=== PATIENT | female | born 1980 | race Caucasian/White ===

== ENCOUNTER 2022-10-23 07:25 | Day surgery (SDC) | payer BC, SELFPAY ==
--- NOTE | 2022-10-13 16:47 | PCM.HP.BLA ---
History and Physical Date of Admission: 10/23/22 HPI: The patient is a 41 year old female presenting for pre-operative visit. She is scheduled for LAVH with bilateral salpingectomy, for menorrhagia, adenomyosis and fe def. anemia from chronic blood loss on 10/23/2022. Procedure discussed along with risks, benefits and complications. Other alternatives discussed for management. Consent form signed? Yes. ? ? PAST MEDICAL HISTORY PAST MEDICAL HISTORY Diagnosis Date ? ADHD (attention deficit hyperactivity disorder) ? ? Bronchitis, chronic (HCC) ? ? COPD (chronic obstructive pulmonary disease) (HCC) ? ? Depression ? ? Generalized anxiety disorder ? ? Menorrhagia ? ? Mixed hyperlipidemia ? ? Multiple lung nodules on CT ? ? 05/22/21 ? MVP (mitral valve prolapse) ? ? NEGATIVE MEDICAL HISTORY ? ? ? PAST SURGICAL HISTORY PAST SURGICAL HISTORY Procedure Laterality Date ? DELIVERY ONLY ? ? ? 2005, 2019 ? EGD W/O BRSH SPEC VARICIES INJ ? ? ? HEMORRHOIDECTOMY ? ? ? LIG/TRNSXJ FLP TUBE ABDL/VAG APPR UNI/BI ? 2005 ? PAST SURGICAL HISTORY OF ? ? ? appendectomy ? PAST SURGICAL HISTORY OF ? ? ? tubal reversal. ? ? ? CURRENT MEDICATIONS Current Outpatient Medications Medication Sig Dispense Refill ? norethindrone (AYGESTIN) 5 mg tablet Take 1 tablet by mouth 3 times daily until bleeding stops then take 1 tablet by twice daily for 3 days then daily until gone. 45 tablet 0 ? NaCl 0.9% solp 250 mL with iron sucrose 100 mg iron/5 mL soln Inject intravenously one time a week. ? ? ? FOLIC ACID ORAL Take 1 mg by mouth. ? ? ? cyanocobalamin, vitamin B-12, (B-12 KIT INJECTION) by INJECTION(UNSPECIFIED PARENTERAL ROUTES) route. Approx every 2 months ? ? ? albuterol HFA (PROVENTIL HFA, VENTOLIN HFA) 90 mcg/actuation inhaler Inhale 2 Puffs as instructed every 4 hours as needed. ? ? ? amphetamine-dextroamphetamine XR (ADDERALL XR) 30 mg 24 hr capsule Take 1 capsule by mouth. ? ? ? lyfimeojgg-veqjkcvr-ronlsqutcj (BREZTRI AEROSPHERE) 160-9-4.8 mcg/actuation HFA aerosol inhaler Inhale 2 Puffs as instructed twice daily. ? ? ? No current facility-administered medications for this visit. ? ? ALLERGIES: Patient has no known allergies. ? PERSONAL HISTORY: SOCIAL HISTORY Social History ? Tobacco Use ? Smoking status: Every Day ? ? Packs/day: 1.00 ? ? Years: 25.00 ? ? Pack years: 25.00 ? ? Types: Cigarettes ? Smokeless tobacco: Never Vaping Use ? Vaping Use: Never used Substance Use Topics ? Alcohol use: Yes ? ? Comment: Occasionally ? Drug use: No ? FAMILY HISTORY: FAMILY HISTORY FAMILY HISTORY Problem Relation Age of Onset ? Hypertension Mother ? ? Emphysema Mother ? ? Hypertension Father ? ? Breast Cancer Maternal Grandmother ? ? Heart Maternal Grandmother ? ? ? REVIEW OF SYMPTOMS: GENERAL: denies fevers or chills ENDOCRINOLOGY: has not been on steroids Cardiology : denies palpitations or chest pain Respiratory: denies SOB or cough Hematology: denies history of prolonged bleeding or easy bruising or VTE Allergy: Denies history of personal or family history of allergy to anesthesia ? PHYSICAL EXAMINATION: ? VITALS: Blood pressure 106/72, pulse 84, resp. rate 16, height 5' 4.75 (1.645 m), weight 127 lb (57.6 kg), last menstrual period 09/06/2022, SpO2 100 %. ? GENERAL: The patient is well nourished, well hydrated in no acute distress. , The patient is oriented to time, place, and person. NECK: Supple. No lynphadenopathy, normal thyroid, no thyromegaly. LUNGS: Clear to auscultation bilaterally. no wheezes, rhonchi or rales HEART: Regular rate and rhythm, Normal heart sounds, and No murmurs or gallops ? IMPRESSION: menorrhagia, adenomyosis, fe def. anemia ? PLAN: The risks/benefits/alternatives and personal involved for the planned LAVH, bilateral salpingectomy were reviewed with the patient. Her questions were answered to her satisfaction and she desires to proceed. Consent was signed. I reviewed with her postop instructions and expectations. ? ? ? I have reviewed and updated past medical and surgical history, medications and allergies Arlene Haile M.D. ? pelvic US on 08/21/22 RESULT: Uterus size: 6.8 x 4.3 x 5 cm ?? ? -Orientation: Retroverted ?? ? -Myometrium: Normal sonographic appearance. ?? ? -Endometrial echo complex: 0.9 cm . ?The uterus appears bicornuate and/or septate. ?Several echogenic foci. 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 ? -Cervix: Incidental nabothian cysts Right ovary: 2.7 x 1.1 x 2.3 cm ?Normal sonographic appearance. Left ovary: 3.6 x 1.3 x 2.1 cm ?Normal sonographic appearance. Pelvis free fluid: None. Prominent veins in the adnexal regions bilaterally ? ? Pap and HRHPV 09/16/2022 completed EMB 08/2022- secretory endometrium Assessment & Plan Assessment/Plan (1) Menorrhagia: (2) Pelvic congestion: (3) Adenomyosis:
--- NOTE | 2022-10-17 08:03 | EKG12_ITS ---
Test Reason : PREOP Blood Pressure : / mmHG Vent. Rate : 076 BPM Atrial Rate : 076 BPM P-R Int : 114 ms QRS Dur : 066 ms QT Int : 346 ms P-R-T Axes : 067 055 050 degrees QTc Int : 389 ms Normal sinus rhythm Normal ECG Confirmed by KRISTI FLORES, ERIC ([id number]), editor at large JUAN MANUEL MCDANIELS ([id number]) on 10/20/2022 2:31:43 PM Referred By: Arlene Haile Confirmed By:NACHO BERRY MD
[2022-10-17 08:57] LABS: Hematocrit 42.3 % (37-47); Hemoglobin 13.9 g/dL (12.0-15.0); Mean Corp Hgb Conc 32.9 g/dL (32-36); Mean Corpuscular Hgb 28.8 pg (27.0-32.0); Mean Corpuscular Volume 87.8 fL (81-99); Mean Platelet Vol. 11.2 fl (6.2-12.0); Platelet Count 238 K/mm3 (150-450); RBC Distribution Width CV 16.6 % (11.6-14.6); RBC Distribution Width SD 53.9 fl (35.1-43.9); Red Blood Count 4.82 M/mm3 (4.2-5.4); White Blood Count 6.8 K/mm3 (4.4-11.0)
[2022-10-17 09:19] LABS: Anion Gap 7 (5-15); BUN 11 mg/dL (7-18); BUN/Creat Ratio 17.4 RATIO (10-20); Calcium,Total 9.1 mg/dL (8.5-10.1); Chloride 106 mmol/L (98-107); Creatinine, Serum 0.63 mg/dL (0.55-1.02); EST Glomerular Filtration Rate 110 mL/min (>60); Est Glom Filt Rate - Afr Amer 133 mL/min (>60); Glucose 108 mg/dL (74-106); Magnesium 2.1 mg/dL (1.6-2.6); Potassium 4.3 mmol/L (3.5-5.1); Sodium Level 137 mmol/L (136-145)
[2022-10-23 08:03] LABS: Internal QC Validated? YES +Cl - CLEAR BKGD
[2022-10-23 08:06] LABS: Pregnancy, Urine Negative Negative
[2022-10-23 08:17] VITALS: BP 102/63; PULSE 82; RESP 16; TEMP 37.1; O2SAT 100; BMI 21.4
[2022-10-23] MEDS: Lactated Ringers 1,000 ML 40 ML IV (08:22)
[2022-10-23] MEDS: Magnesium 1 GM over 15 mins IV (08:22)
[2022-10-23] MEDS: Celecoxib 200 MG Capsule 400 MG PO (08:23)
[2022-10-23] MEDS: Gabapentin 600 MG Tablet PO (08:23)
[2022-10-23] MEDS: Scopolamine 1mg/72hr Patch 1 PATCH TD (08:23)
[2022-10-23] MEDS: Acetaminophen 500 MG Tablet 1000 MG PO (08:23)
[2022-10-23] MEDS: Phenazopyridine 95 MG Tablet 190 MG PO (08:23)
[2022-10-23] MEDS: Enoxaparin 40 MG/0.4 ML Syringe SC (08:24)
[2022-10-23 09:25] LABS: Bedside Glucose 99 mg/dL (74-106)
[2022-10-23] MEDS: Cefazolin 2 GM in 0.9% Normal Saline 100 ML IV (09:55)
--- NOTE | 2022-10-23 09:55 | HYST_PTH ---
PATIENT: EUSEBIA FLORES LOC: [facility] U#:[id number] AGE/SX: 41/F ROOM: RE10/23/[address]: Dr. Arlene Haile MD : 1980 BED: DIS: 10/23/2022 SPEC #: [id number] RECD: 10/23/22 14:17 STATUS: EVELIA BRIJESH #: [id number] ORTIZ: 10/23/22 09:[address]: Arlene Haile DEPT: SURGICAL PATHOLOGY RECD BY: Yuly Pardo Tissues: Uterus, NOS Procedures: Surgery Specimen Level V HEADER OPERATION: ERAS, hysterectomy, LAVH, salpingectomy PRE-OP DIAGNOSIS: Menorrhagia, pelvic congestion, adenomyosis TISSUE SUBMITTED: Uterus and bilateral fallopian tubes MICROSCOPIC DIAGNOSIS Uterus, hysterectomy: Cervix ? mild chronic inflammation. Endometrium ? focal superficial adenomyosis. Myometrium ? leiomyoma. Right and left fallopian tubes ? complete cross-sections of two fallopian tubes. Benign paratubal cyst. AM:sidra 10/27/2022 MICROSCOPIC DESCRIPTION Slides are reviewed. GROSS DESCRIPTION Received in fixative is one container labeled with the patient's name and designated uterus and bilateral fallopian tubes. The specimen consists of a hysterectomy specimen consisting of uterus with cervix and detached bilateral fallopian tubes. The uterus with cervix weighs 84 gm and measures 8.0 x 6.0 x 4.5 cm. The serosal surface is dailey, glistening. The ectocervical mucosa is unremarkable. The external os is oval in contour. The endocervical canal measures 3.0 cm in length and the endocervical mucosa is dailey, glistening and unremarkable. The triangular endometrial cavity measures 3.5 cm in length and 2.0 cm in width. The endometrium is dailey, glistening without any mass lesion and measures 0.3 cm in thickness. Sections of the uterine wall do not reveal any mass lesion. An ill-defined, whitish area is noted measuring 0.3 cm in greatest dimension. The uterine wall measures up to 2.0 cm in thickness. The detached bilateral fallopian tubes are not identified as right or left and measures 3.5 cm in length and 0.5 cm in diameter and 4.5 cm in length and 0.5 cm in diameter. The fimbrial end is identified. Sections reveal unremarkable cut surfaces. Fryline Attendant sections are submitted in 9 cassettes as follows: 1 - anterior cervix, 2 - posterior cervix, 3 & 4 - anterior uterine wall, 5 & 6 - posterior uterine wall, 7 - ill-defined nodular area, 8 - one fallopian tube, 9 - second fallopian tube. / WEI:sidra 10/24/2022 TC:5 CPT: 53342
--- NOTE | 2022-10-23 10:06 | DCINST_ITS ---
Discharge Instructions Diet Discharge Diet: Light diet - advance as tolerated Activity Discharge Activity: May Drive (in 5-7 days if not taking pain medication) and May Shower (10/24/12) May resume sexual activity in: 6-8 weeks Lifting Restrictions: 15 lbs x 6 weeks Dressing / Incision Call your doctor if your incision/area has: Sudden Increased Bleeding, Increased Pain/ Swelling, Foul Smelling Discharge and Swelling at the incision site Call your doctor if you observe: Fever of 101 or Higher Cleanse incision/area with: Soap & Water (Your incisions have skin glue, it can get wet. Leave it on for 10 days or until it falls off) Follow Up Care Please Follow Up With: Arlene Haile MD When: 1 week and 6 weeks or as needed. Call [phone] or send a Reesio message with any questions or concerns. Test Results: Test results from this visit will be discussed in further detail at your follow- up appointment, if applicable. Discharge Plan Admission Primary Reason for Your Visit: Hysterectomy Attending Provider: Arlene Haile Primary Care Provider: BENJY OVALLE Discharge Orders/Prescriptions Prescriptions: New ibuprofen [ibuprofen] 600 MG tablet 600 mg PO Q6H PRN (Reason: Pain) 20 Days Qty: 60 1RF oxycodone 5 MG tablet 5 mg PO Q6H PRN PRN (Reason: severe pain) 7 Days Qty: 15 0RF Continued albuterol sulfate 90 mcg/actuation HFA aerosol inhaler 2 inh INHALATION Q4H PRN PRN (Reason: Wheezing) Label Comments: INHALE 2 PUFFS EVERY 4 HOURS NEEDED FOR COUGH, SHORTNESS OF BREATH, FOR WHEEZING, or respiratory distress dextroamphetamine-amphetamine [Adderall XR] 15 mg Capsule,Extended Release 24hr 15 mg PO DAILY Referrals / Follow Up: BENJY OVALLE [Other] Disposition Disposition (needs filled in before D/C Order can be placed): Home, Self Care
[2022-10-23] MEDS: dexAMETHasone 4 MG/ML Vial 8 MG IV (10:13)
--- NOTE | 2022-10-23 11:05 | OP.PCM_ITS ---
Problems Associated Problem List Diagnoses (1) Menorrhagia: (2) Pelvic congestion: (3) Adenomyosis: Report of Operation Date of Procedure: 10/23/22 Pre-Operative Diagnosis: menorrhagia, adenomyosis, pelvic congestion Post-Operative Diagnosis: same Surgery/Procedure Performed:: LAVH with bilateral salpingectomy Description of Surgical Findings:: normal boggy uterus, tubes and ovaries Surgeon: Arlene Haile director of capital giving: Kortney Domingo director of capital giving: paula Hui MS3 Type of Anesthesia: General Anesthesiologist: Roseann Baldwin Special Medications: none Specimen's removed: uterus, cervix, bilateral fallopian tubes Drains: none Estimated Blood Loss (mL): 40 Fluids Replaced: 1100 Description of Procedure: The patient was taken to the operating room where she was prepped and draped in the dorsal lithotomy position. Her arms were tucked to the side and padded and her legs were placed in the yellowfin stirrups. Care was taken to ensure that she was placed in a neurologically safe and neutral position. A weighted speculum was placed in the vagina and the anterior lip of the cervix was grasped with a single-tooth tenaculum. The uterus sounded to 7 centimeters. The ZUMI uterine manipulator was placed and secured. The Espinal catheter was placed to straight drain. Attention was turned to the abdominal portion of the case. Before skin incisions were made they were infiltrated with 0.5% Marcaine solution for local anesthetic. A 5 mm intraumbilical incision was made and while tenting the anterior abdominal wall up with towel clamps a 5 mm blade less trocar and sleeve were advanced directly into the peritoneal cavity. Peritoneal placement was confirmed with the laparoscope the pneumoperitoneum was created, and the underlying abdominal contents were intact. The patient was placed in Trendelenburg and the above findings were noted. Right and left lateral 5 mm trochars were placed under direct visualization without difficulty. The antimesenteric portion of the tube was clamped sealed and transected serially on both sides with the LigaSure device. The round ligaments were clamped sealed and transected and a window was made in the peritoneum. The utero-ovarian ligaments were then clamped, sealed and transected with the LigaSure device and the pedicles were hemostatic The bladder flap was dissected down with the LigaSure device and blunt dissection and the uterine arteries were then skeletonized. The uterine arteries were clamped, sealed and transected on both sides with the LigaSure device. At this point the pedicles were all examined and found to be hemostatic. Attention was turned to the vaginal portion of the case. 1% lidocaine with dilute epinephrine solution was used to infiltrate the anterior vaginal epithelium over the cervix. An incision was made from 3 to 9:00 across the anterior vaginal epithelium and the vaginal epithelium was dissected back with blunt sharp dissection. The anterior colpotomy incision was made. The vaginal epithelium on each side of the cervix at 3 and 9:00 was clamped, transected and suture ligated. The next pedicle contained the anterior peritoneum and part of the cardinal ligament. The pedicle was was clamped with a Derrick clamp, transected and suture-ligated. Hemostasis was noted. The uterine fundus was brought through the anterior colpotomy incision. The uterosacral ligaments and vaginal cuff were secured with Derrick clamps. The pedicles were transected. The uterus and cervix were then amputated and removed. The pedicles were secured with an 0 Vicryl suture. At this point, the pedicles were all examined and hemostasis was assured. A uynfbx-uk-znypd was needed in the midline and the vaginal cuff between the uterosacrals to tack the peritoneum down to the posterior vaginal wall. The vaginal cuff was then closed in a horizontal fashion with interrupted 0 Vicryl xrhiid-lc-erexz sutures. Care was taken to secure the vagina to the uterosacral ligaments. A sponge stick was placed in the vagina to help place traction against the vaginal cuff. The laparoscope was reinserted into the abdomen and the pneumoperitoneum was re- created. The pedicles were reexamined and found to be hemostatic. The vaginal cuff was hemostatic. The right and left lateral ports were taken out and the sites were hemostatic. The pneumoperitoneum was released and even under low pressure there was no bleeding of any of the pedicles are vaginal cuff. The umbilical port was removed. The umbilical skin incisions were closed with Monocryl suture and skin glue by Dr. Alexandre. The vaginal instruments were removed by me and a vaginal sweep was completed by me. The surgery was performed by me with assistance other than the portions dictated as above. There were no qualified residents available for this procedure. All sponge lap and needle counts were correct and the patient was transferred to the recovery room in stable condition. Grafts/Implants Used: none Procedure Start Time: 10:16 Procedure Stop Time: 11:13 Complications none Admit VTE Documentation VTE Present on Admission: No VTE Mechan Device Prophylaxis: SCD's VTE Pharm Prophylaxis ordered?: No Reason prophylaxis not ordered:: Procedure Not Indicated
[2022-10-23] MEDS: Bupivacaine Mpf 0.5% 30 ML VIAL (11:12)
[2022-10-23] MEDS: Lidocaine 1% /Epi 1:100 (20ml) 20 ML Vial (11:12)
[2022-10-23] MEDS: Ondansetron 4 MG/2 ML Vial IV (11:12)
[2022-10-23 11:30] VITALS: BP 102/63; BP 116/68; PULSE 76; RESP 16; TEMP 36.8; O2SAT 100
[2022-10-23 11:45] VITALS: BP 102/63; BP 110/78; PULSE 71; RESP 15; O2SAT 100
[2022-10-23 12:00] VITALS: BP 102/63; BP 112/79; PULSE 74; RESP 16; O2SAT 100
[2022-10-23 12:26] VITALS: BP 102/63; BP 113/76; PULSE 65; RESP 16; TEMP 36.4; O2SAT 100
[2022-10-23] MEDS: oxyCODONE 5 MG Tablet PO (14:19)
[2022-10-23 14:27] LABS: Hematocrit 38.7 % (37-47); Hemoglobin 12.5 g/dL (12.0-15.0); Mean Corp Hgb Conc 32.3 g/dL (32-36); Mean Corpuscular Hgb 28.9 pg (27.0-32.0); Mean Corpuscular Volume 89.4 fL (81-99); Mean Platelet Vol. 10.5 fl (6.2-12.0); Platelet Count 218 K/mm3 (150-450); RBC Distribution Width SD 53.2 fl (35.1-43.9); Red Blood Count 4.33 M/mm3 (4.2-5.4); White Blood Count 12.9 K/mm3 (4.4-11.0)
[2022-10-23 15:07] VITALS: BP 102/63; BP 110/65; PULSE 95; RESP 16; TEMP 37.4; O2SAT 98
--- NOTE | 2022-10-23 15:35 | SUR.PHASEII ---
1320: IN TO CHECK ON PT, PULLED BLANKETS BACK AND GOWN WAS SATURATED WITH BLOOD. BLOOD COMING FROM LEFT LOWER INCISION. PRESSURE HELD. DR HEMAL ALMAZAN. HEMAL AT BEDSIDE RE-DRESSING AND SUTURING PT. PT NOW HAS OPSITE OVER WOUND. SHADOWING ON OPSITE, NO MORE DRAINAGE NOTED AT TIME OF DISCHARGE. DR RECIO OK WITH PT GOING HOME. NO FURTHER ORDERS OR INSTRUCTIONS.
--- NOTE | 2022-10-23 17:55 | PCM.PN.BLA ---
Progress Note I was called to the recovery room at approximately 1:30 PM because the patient's left lower quadrant incision was bleeding. The skin glue was removed and there was active bleeding from the site. There is just a small constant trickle. I attempted to place a deeper suture into the incision but the bleeding continued around it. I then removed the subcu reticular suture and the suture I had placed. I attempted again to place a horizontal mattress suture but it still continued to bleed. This was then removed. Then I had a portable cautery and was able to cauterize the incision. I had injected approximately 8 cc of 1% Xylocaine without epinephrine locally and cleansed the area with Betadine. At this point the incision was watched for several minutes and was hemostatic. The skin edges were then reapproximated with Steri-Strips and an OpSite was placed over it. The patient is to follow-up in 1 week or as needed. Call if any increased bleeding or concerns. Patient is comfortable with this plan.
== END 2022-10-23 15:32 | disposition home or self-care (01) ==
LOC: SDC 07:27 → AC 07:27
PROVIDERS: Anesthesiology; Referring Provider Obstetrics & Gynecology; Visit Provider Obstetrics & Gynecology
PROC: 0UT9FZZ Resection of Uterus, Via Natural or Artificial Opening With Percutaneous Endoscopic Assistance (ICD-10-PCS; CPT 58552; principal; 2022-10-23 09:35)
DX: D25.9 Leiomyoma of uterus, unspecified (principal); J44.9 Chronic obstructive pulmonary disease, unspecified; N72 Inflammatory disease of cervix uteri; N83.8 Other noninflammatory disorders of ovary, fallopian tube and broad ligament; N92.0 Excessive and frequent menstruation with regular cycle; N80.03 Adenomyosis of the uterus; F90.9 Attention-deficit hyperactivity disorder, unspecified type; F17.210 Nicotine dependence, cigarettes, uncomplicated; D50.0 Iron deficiency anemia secondary to blood loss (chronic); Z79.899 Other long term (current) drug therapy
CPT/HCPCS: 58552; 00840; 36415; 80048; 81025; 82962; 83735; 85027; 86850; 86900; 86901; 88307; 93005; J7120; J2405; J3475